=== PATIENT | male | born 1995 | race Caucasian/White ===

== ENCOUNTER 2023-03-31 19:12 | Emergency (ER) | payer BC ==
[~2023-03-31] VITALS: Ht 182.9 cm; Wt 101.1 kg
[2023-03-31 20:33] VITALS: BP 144/86; TEMP 98.5; O2SAT 100
== END 2023-03-31 20:39 | disposition home or self-care (01) ==
LOC: M ED 19:12
DX: S61.241A Puncture wound with foreign body of left index finger without damage to nail, initial encounter (principal); W54.0XXA Bitten by dog, initial encounter; Y92.009 Unspecified place in unspecified non-institutional (private) residence as the place of occurrence of the external cause; Y93.9 Activity, unspecified; Y99.9 Unspecified external cause status